=== PATIENT | male | born 1950 | race Caucasian/White ===

== ENCOUNTER 2017-04-07 15:13 | Emergency (ER) | payer OTHER, MEDICARE ==
[2017-04-07 15:29] VITALS: BP 116/86
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
== END 2017-04-07 18:30 | disposition home or self-care (01) ==
LOC: ER 15:13
DX: S16.1XXA Strain of muscle, fascia and tendon at neck level, initial encounter (principal); V43.52XA Car driver injured in collision with other type car in traffic accident, initial encounter; J44.9 Chronic obstructive pulmonary disease, unspecified; Z98.890 Other specified postprocedural states; M54.2 Cervicalgia; R20.0 Anesthesia of skin; R20.2 Paresthesia of skin
CPT/HCPCS: 71020; 72050; 99283